=== PATIENT | male | born 1975 | race Caucasian/White ===

== ENCOUNTER 2025-08-16 07:04 | Day surgery (SDC) | payer BC ==
[2025-08-16] MEDS ORDERED: Lactated Ringers 1,000 ML IV ONE (07:14)
[2025-08-16] MEDS ORDERED: SUBLIMAZE 100 MCG/2 ML ONE (09:46)
[2025-08-16] MEDS ORDERED: Xylocaine-Mpf 2% 5 Ml Vial ONE (09:46)
[2025-08-16] MEDS ORDERED: propofoL IV ONE ×2 (09:46→09:53)
[2025-08-16] MEDS ORDERED: Versed 2 MG/2 ML Injection ONE (09:46)
[2025-08-16] MEDS ORDERED: Ephedrine Sulfate 50 MG/ML ONE (10:15)
[2025-08-16 10:39] VITALS: RESP 16
[2025-08-16 10:50] VITALS: BP 112/78; PULSE 64; TEMP 98.3; O2SAT 97
--- NOTE | 2025-08-17 10:56 | OP ---
SURGERY DATE/TIME: 08/16/2025 [id number] PREOPERATIVE DIAGNOSIS: Positive Cologuard. POSTOPERATIVE DIAGNOSIS: Two large sigmoid colon polyps and one small cecum polyp. PROCEDURE PERFORMED: Colonoscopy. SURGEON: Arron Lovell MD ANESTHESIA: MAC by Jorge Duncan CRNA. ESTIMATED BLOOD LOSS: Minimal. SPECIMENS: There were 2 hot snare polypectomies from the sigmoid colon and 1 hot forceps polypectomy from the cecum. DESCRIPTION OF PROCEDURE AND FINDINGS: After informed written consent was obtained, the patient was taken to the endoscopy suite. He underwent monitored anesthesia and digital rectal exam showed normal sphincter tone and no internal lesions. The scope was inserted in the rectum, and sequentially the entire colonic mucosa was traversed. The level of the cecum was reached and verified with direct visualization of the ileocecal valve. There was a small sessile polyp in the cecum near the ileocecal valve, which was grasped with the forceps, cauterized and sent for pathology testing. Upon withdrawal, the remainder of the exam was normal until the distal sigmoid colon was reached. At 20 cm scope depth, there was a large pedunculated polypoid lesion which was removed with a hot snare. The entire lesion appeared to be adequately removed with a hemostatic base and it was too large to fit through the scope and was retrieved just distal to that region at approximately 25 cm. There was another smaller elongated similar lesion but much smaller, which was also snared and removed with good hemostasis and was retrieved in the polyp trap and sent for pathology testing. Again, these were both very near each other at 20 to 25 cm scope depth in the sigmoid colon. Below those lesions, the colon appeared normal. There were no other lesions. Retroflexion was performed, showed no internal lesions. Scope was removed and patient was transferred to the recovery room in good condition.
== END 2025-08-16 10:57 | disposition home or self-care (01) ==
LOC: SDC 07:04
PROVIDERS: ATTEND Family Medicine
DX: D12.0 Benign neoplasm of cecum (principal); D12.5 Benign neoplasm of sigmoid colon; R19.5 Other fecal abnormalities